=== PATIENT | male | born 2000 | race Caucasian/White ===

== ENCOUNTER 2019-06-06 19:32 | Emergency (ER) | payer OTHER ==
[~2019-06-06] VITALS: Ht 185.4 cm; Wt 86.2 kg
[~2019-06-06 19:32] MED LIST: (None)20 M1 PO; ALBU.083IS; ALBU.083IS IH; ALBU90OI; ALBU90OI INH; ALBUIS; AMOCLA400S PO; AMOX50SU PO; AZIT200SU PO; AZIT250 PO; BUDE.5; BUDE200IP; CETI1SY PO; DIMETAPP; FLUSAL2505 INH; FLUT110OIA INH; FLUT44OIA; IBUP600 PO; MONT10T PO; MONT5TCH; Mucinex600 MG PO; Naprosyn500 MG PO; Norco 5-325 Ta1 EACH PO; PENVK500 PO; PRED10 PO; PRED15SY; PRED15SY PO; PRED1SY PO; PRED20 PO; Peridex480 ML SS; Prednisone20 MG PO; RXAZITHSU PO; Tylenol With C1 EACH PO; Veetids 500500 MG PO; Ventolin Soln3 ML INH; Zofran8 MG PO
== END 2019-06-06 20:12 | disposition home or self-care (01) ==
LOC: ER 19:32
DX: L23.7 Allergic contact dermatitis due to plants, except food (principal); J45.909 Unspecified asthma, uncomplicated; Z79.899 Other long term (current) drug therapy
CPT/HCPCS: 96372; 99283-25; J3301

== ENCOUNTER 2019-06-11 15:58 | Emergency (ER) | payer OTHER ==
[~2019-06-11] VITALS: Ht 185.4 cm; Wt 86.2 kg
[2019-06-11] MEDS ORDERED: Prednisone20 MG PO (16:55)
[2019-06-11] MEDS ORDERED: ALBU90OI INH (16:55)
== END 2019-06-11 17:00 | disposition home or self-care (01) ==
LOC: ER 15:58
DX: J45.909 Unspecified asthma, uncomplicated (principal); Z79.899 Other long term (current) drug therapy
CPT/HCPCS: 94640; 99284-25; J7512

== ENCOUNTER 2019-10-07 12:05 | Emergency (ER) | payer OTHER ==
[~2019-10-07] VITALS: Ht 185.4 cm; Wt 86.2 kg
[2019-10-07 12:53] LABS: BASOPHILS ABSOLUTE AUTO 0.03 K/mm3 (0.00-0.23); BASOPHILS PERCENT AUTO 1 % (0-2); EOSINOPHILS ABSOLUTE AUTO 0.32 K/mm3 (0.00-0.68); EOSINOPHILS PERCENT AUTO 5 % (0-6); Hematocrit 53.3 % (37.0-53.0); Hemoglobin 17.9 g/dL (13.5-17.5); IMMATURE GRAN ABSOLUTE AUTO 0.01 K/mm3 (0.00-0.10); IMMATURE GRAN PERCENT AUTO 0 % (0-1); LYMPHOCYTES ABSOLUTE AUTO 1.64 K/mm3 (0.84-5.20); LYMPHOCYTES PERCENT AUTO 26 % (21-46); MONOCYTES ABSOLUTE AUTO 0.68 K/mm3 (0.16-1.47); MONOCYTES PERCENT AUTO 11 % (4-13); Mean Corpuscular HGB 30.7 pg (26.0-34.0); Mean Corpuscular HGB Conc 33.6 g/dL (31.5-36.5); Mean Corpuscular Volume 91 fL (80-100); Mean Platelet Volume 10.6 fL (9.1-12.4); NEUTROPHILS ABSOLUTE AUTO 3.53 K/mm3 (1.96-9.15); NEUTROPHILS PERCENT AUTO 57 % (41-73); Platelet Count 200 K/mm3 (150-400); RDW Coefficient Variation 12.1 % (11.7-14.2); RDW Standard Deviation 40.4 fL (35.1-46.3); Red Blood Cell Count 5.84 M/mm3 (4.30-5.90); White Blood Cell Count 6.21 K/mm3 (4.00-11.30)
[2019-10-07 13:09] LABS: Alanine Aminotransfer (ALT/SGP 26 U/L (12-78); Albumin, Blood 4.5 g/dL (3.4-5.0); Albumin/Globulin Ratio 1.2 (0.8-1.8); Alk Phos 106 U/L (50-136); Anion Gap 7 mmol/L (6-16); Aspartate Aminotrans (AST/SGOT 29 U/L (12-37); Bilirubin, Total 0.8 mg/dL (0.1-1.0); Blood Urea Nitrogen 10 mg/dL (8-24); Bun/Creatinine Ratio 9.1 (12.0-20.0); CO2, Blood 26 mmol/L (21-32); Calcium, Blood 9.8 mg/dL (8.5-10.1); Chloride, Blood 107 mmol/L (98-108); Globulin, Blood 3.8 g/dL (2.2-4.0); Glomerular Filtration Rate >60 (60-); Glucose, Blood 81 mg/dL (70-99); Potassium, Blood 4.3 mmol/L (3.5-5.5); Sodium, Blood 140 mmol/L (136-145); Total Protein, Blood 8.3 g/dL (6.4-8.2)
[2019-10-07] MEDS ORDERED: Prednisone20 MG PO (15:52)
[2019-10-07] MEDS ORDERED: duoneb NEB (15:52)
== END 2019-10-07 16:25 | disposition home or self-care (01) ==
LOC: ER 12:05
PROVIDERS: Physician Assistant
DX: J45.901 Unspecified asthma with (acute) exacerbation (principal)
CPT/HCPCS: 36415; 71045; 80053; 85025; 94640; 94644; 94645; 96374; 99285-25; J2930

== ENCOUNTER → 2019-11-07 | Outpatient (CLI) | payer OTHER ==
[~2019-11-07] MED LIST changes: +duoneb NEB
[2019-11-09 02:07] LABS: CHLAMYDIA TRACHOMATIS, NAA Negative (Negative); NEISSERIA GONORRHOEAE, NAA Negative (Negative)
== END | disposition home or self-care (01) ==
LOC: LAB 08:44 → LAB SHORT 08:44
PROVIDERS: Student in an Organized Health Care Education/Training Program
DX: Z11.3 Encounter for screening for infections with a predominantly sexual mode of transmission (principal)
CPT/HCPCS: 87491; 87591

== ENCOUNTER 2019-11-17 21:40 | Emergency (ER) | payer OTHER ==
[~2019-11-17] VITALS: Ht 185.4 cm; Wt 90.7 kg
[2019-11-17] MEDS ORDERED: Prednisone20 MG PO (23:04)
== END 2019-11-17 23:37 | disposition home or self-care (01) ==
LOC: ER 21:40
DX: J45.901 Unspecified asthma with (acute) exacerbation (principal); Z79.51 Long term (current) use of inhaled steroids
CPT/HCPCS: 94640; 94644; 99284-25; J1100

== ENCOUNTER → 2019-11-27 | Outpatient (CLI) | payer OTHER ==
[2019-12-01 07:10] LABS: HSV-1 DNA Negative (Negative); HSV-2 DNA Negative (Negative)
== END | disposition home or self-care (01) ==
LOC: LAB 19:15 → LAB SHORT 19:15
PROVIDERS: Nurse Practitioner
DX: Z72.51 High risk heterosexual behavior (principal)
CPT/HCPCS: 87529

== ENCOUNTER 2019-12-25 11:25 | Emergency (ER) | payer OTHER ==
[~2019-12-25] VITALS: Ht 185.4 cm; Wt 89.8 kg
[2019-12-25] MEDS ORDERED: Prednisone20 MG PO (11:58)
== END 2019-12-25 12:10 | disposition home or self-care (01) ==
LOC: ER 11:25
DX: J45.901 Unspecified asthma with (acute) exacerbation (principal); F12.10 Cannabis abuse, uncomplicated; Z79.51 Long term (current) use of inhaled steroids
CPT/HCPCS: 94640; 99284-25; 99407; J7512

== ENCOUNTER 2020-08-23 20:40 | Emergency (ER) | payer OTHER ==
[~2020-08-23] VITALS: Ht 185.4 cm; Wt 99.8 kg
[2020-08-23] MEDS ORDERED: IPRAT-ALBUT 0.5-3 ML NEB (21:15)
[2020-08-23] MEDS ORDERED: PRED20 PO (21:15)
[2020-08-23] MEDS ORDERED: ALBU90OI INH (21:15)
== END 2020-08-23 22:35 | disposition home or self-care (01) ==
LOC: ER 20:40
DX: J45.901 Unspecified asthma with (acute) exacerbation (principal); T59.811A Toxic effect of smoke, accidental (unintentional), initial encounter; Z79.52 Long term (current) use of systemic steroids; Z79.899 Other long term (current) drug therapy
CPT/HCPCS: 94640; 99283-25; J7512

== ENCOUNTER 2020-08-30 12:48 | Emergency (ER) | payer OTHER ==
[~2020-08-30] VITALS: Ht 185.4 cm; Wt 98.9 kg
[~2020-08-30 12:48] MED LIST changes: +IPRAT-ALBUT 0.5-3 ML NEB
== END 2020-08-30 14:07 | disposition home or self-care (01) ==
LOC: ER 12:48
DX: J06.9 Acute upper respiratory infection, unspecified (principal); J45.909 Unspecified asthma, uncomplicated; Z79.52 Long term (current) use of systemic steroids; Z79.899 Other long term (current) drug therapy
CPT/HCPCS: 96372; 99284-25; A9270; J1885

== ENCOUNTER 2020-11-03 07:40 | Emergency (ER) | payer OTHER ==
[~2020-11-03] VITALS: Ht 185.4 cm; Wt 99.8 kg
[2020-11-03] MEDS ORDERED: IPRAT-ALBUT 0.5-3 ML NEB (10:32)
[2020-11-03] MEDS ORDERED: PRED20 PO (10:32)
== END 2020-11-03 10:40 | disposition home or self-care (01) ==
LOC: ER 07:40
DX: J45.901 Unspecified asthma with (acute) exacerbation (principal); F12.90 Cannabis use, unspecified, uncomplicated; Z79.52 Long term (current) use of systemic steroids
CPT/HCPCS: 71046; 94644; 99284-25; J1100

== ENCOUNTER 2020-11-14 19:12 | Emergency (ER) | payer OTHER ==
[~2020-11-14] VITALS: Ht 185.4 cm; Wt 95.2 kg
[2020-11-14] MEDS ORDERED: Prednisone50 MG PO (21:57)
[2020-11-14] MEDS ORDERED: Ventolin5 MG/1 ML NEB (22:34)
[2020-11-14] MEDS ORDERED: ALBU90OI INH (22:34)
== END 2020-11-14 22:33 | disposition home or self-care (01) ==
LOC: ER 19:12
DX: J45.901 Unspecified asthma with (acute) exacerbation (principal); Z79.52 Long term (current) use of systemic steroids; Z20.822 Contact with and (suspected) exposure to COVID-19
CPT/HCPCS: 36415; 71045; 93005; 93010; 94640; 94644; 96365; 96375; 99285-25; J1100; J3475

== ENCOUNTER 2021-05-13 20:52 | Emergency (ER) | payer OTHER ==
[~2021-05-13] VITALS: Ht 185.4 cm; Wt 98.9 kg
[~2021-05-13 20:52] MED LIST changes: +Prednisone50 MG PO; +Ventolin5 MG/1 ML NEB
[2021-05-13] MEDS ORDERED: 1/2 NS 250ml250 ML (22:52)
[2021-05-13] MEDS ORDERED: ALBU2.5V5 (22:52)
[2021-05-13] MEDS ORDERED: ALBU90OI INH (22:52)
== END 2021-05-13 22:58 | disposition left against medical advice (07) ==
LOC: ER 20:52
DX: Z53.21 Procedure and treatment not carried out due to patient leaving prior to being seen by health care provider (principal)

== ENCOUNTER 2021-05-19 12:02 | Emergency (ER) | payer OTHER ==
[~2021-05-19] VITALS: Ht 185.4 cm; Wt 97.5 kg
[~2021-05-19 12:02] MED LIST changes: +1/2 NS 250ml250 ML; +ALBU2.5V5
[2021-05-19] MEDS ORDERED: ZEPHREX-D30 MG PO (12:28)
[2021-05-19] MEDS ORDERED: ONDA4ODT MM (12:28)
== END 2021-05-19 12:32 | disposition home or self-care (01) ==
LOC: ER 12:02
DX: U07.1 COVID-19 (principal); R11.0 Nausea; J32.9 Chronic sinusitis, unspecified; J45.909 Unspecified asthma, uncomplicated
CPT/HCPCS: 99284

== ENCOUNTER 2022-11-22 03:56 | Emergency (ER) | payer OTHER ==
[~2022-11-22] VITALS: Ht 200.7 cm; Wt 104.3 kg
[~2022-11-22 03:56] MED LIST changes: +ALBU2.5V5 INH; +Flovent Disku100 MCG INH; +ONDA4ODT MM; +OSEL75CA PO; +ZEPHREX-D30 MG PO
[2022-11-22] MEDS ORDERED: PRED20 PO (06:16)
[2022-11-22] MEDS ORDERED: BENZ100A PO (06:16)
[2022-11-22] MEDS ORDERED: ALBU90OI INH (06:17)
== END 2022-11-22 06:49 | disposition home or self-care (01) ==
LOC: ER 03:56
DX: J06.9 Acute upper respiratory infection, unspecified (principal); J45.901 Unspecified asthma with (acute) exacerbation; J02.9 Acute pharyngitis, unspecified; Z79.899 Other long term (current) drug therapy; Z79.52 Long term (current) use of systemic steroids
CPT/HCPCS: 71045; 94644; 94664; J1100